=== PATIENT | male | born 1940 | race Caucasian/White ===

== ENCOUNTER 2019-02-12 15:55 | Inpatient (IN) ==
--- NOTE | 2019-02-12 16:57 | EKG Report ---
Test Performed on : 02/12/2019 4:20:12 PM Test Reason : WEAK Blood Pressure : / mmHG Vent. Rate : 072 BPM Atrial Rate : 072 BPM P-R Int : 190 ms QRS Dur : 106 ms QT Int : 394 ms P-R-T Axes : 028 -03 020 degrees QTc Int : 431 ms Normal sinus rhythm. Normal ECG When compared with ECG of 25-DEC-2018 23:20, (Unconfirmed) No significant change was found Unconfirmed Result
[2019-02-12 17:17] LABS: BASO# 0.03 X1000 (0.0-0.2); BASO% 0.4 % (0.0-0.8); EOS# 0.01 X1000 (0.0-0.7); EOS% 0.1 % (0.0-10.0); HEMOGLOBIN 11.9 g/dL (14.0-18.0); LYMPH# 0.53 X1000 (1.2-3.4); LYMPH% 6.7 % (20.5-51.1); MCH 25.5 PG (27-31); MCHC 33.1 g/dL (33-37); MCV 77.1 FL (81-99); MONO# 0.79 X1000 (0.11-0.59); NEUT# 6.56 X1000 (1.4-6.5); NEUT% 82.8 % (42.2-75.2); PLT 212 X1000 (130-400); RBC 4.67 XMIL (4.7-6.1); RDW 15.5 % (11.5-14.5); WBC 7.92 X1000 (4.8-10.8)
--- NOTE | 2019-02-12 17:23 | Diag Imaging Result Doc PS360 ---
EXAM: CHEST-PORTABLE 02/12/2019 HISTORY: FEVER TECHNIQUE: AP portable upright at 1705 COMMENT: There is no evidence of acute cardiac or pulmonary disease. Considering differences in technique there has been no significant change since 06/08/2018. IMPRESSION: Stable chest. Electronically signed by Sathya Maloney 02/12/2019 5:21 PM
[2019-02-12 17:43] LABS: URINE SOURCE CLEAN CATCH
[2019-02-12 17:51] LABS: AGAP 16; ALBUMIN 4.1 g/dL (3.5-5.0); ALKALINE PHOSPHATASE 54 U/L (32-122); BUN 16 mg/dL (8-22); CALCIUM 8.9 mg/dL (8.8-10.2); CHLORIDE 94 mmol/L (98-107); COSMO 267; CREATININE 0.9 mg/dL (0.7-1.2); ESTIMATED GFR > 60; GLUCOSE 114 mg/dL (70-104); GOT 17 U/L (10-34); GPT 13 U/L (10-44); POTASSIUM 3.8 mmol/L (3.5-5.1); SODIUM 132 mmol/L (136-145); TCO2 22 mmol/L (25-35); TOTAL BILIRUBIN 0.41 mg/dL (0.20-1.00); TOTAL PROTEIN 6.1 g/dL (6.3-8.3)
[2019-02-12 17:52] LABS: BILIRUBIN URINE NEGATIVE (NEGATIVE); BLOOD URINE NEGATIVE (NEGATIVE); COLOR YELLOW; GLUCOSE URINE NEGATIVE (NEGATIVE); KETONE URINE NEGATIVE (NEGATIVE); LEUKOCYTES URINE NEGATIVE (NEGATIVE); NITRITE URINE NEGATIVE (NEGATIVE); PH URINE 6.5; PROTEIN URINE NEGATIVE (NEGATIVE); SP GRAVITY URINE 1.014; TURBIDITY URINE CLEAR (CLEAR); UROBILINOGEN URINE NORMAL (NORMAL)
[2019-02-12 17:53] LABS: UR EPITHELIAL CELLS <10 /HPF (<10); URINE BACTERIA NEGATIVE /HPF; URINE RBC <10 /HPF (<10); URINE WBC <10 /HPF (<10)
--- NOTE | 2019-02-12 19:08 | PROVIDER DOCUMENTATION ---
This chart was entered by Bambi Melgoza Scribe, acting as scribe for Leroy Brandt MD. HPI-General Adult - General Source: patient - History of Present Illness -Gen Adult Nature of Presenting Problems: Patient is a 78 year old male who presents with weakness, headache and fever. States seeing PCP prior to arrival. Denies cough, nasal congestion, sore throat, nausea, vomiting and diarrhea. Reports being on Keflex for UTIs. Location of Pain/Injury: reports: head Pain Radiation: reports: no radiation Quality of Pain: reports: aching Severity: reports: mild Onset/Duration: reports: this morning Timing: reports: still present Context/Activities at Onset: reports: light activity Associated Symptoms: reports: fever/chills (fever), headaches, weakness Similar Symptoms Previously?: No Recently seen or treated by another doctor?: Yes <Leroy Brandt - Last Filed: 02/12/19 19:07> <Raymundo Sewell - Last Filed: 02/12/19 19:43> - General Chief Complaint: Weakness Stated Complaint: WEAKNESS,FEVER,LOW BP Time Seen by Provider: 02/12/19 16:11 Allergies/Adverse Reactions: Patient Allergies Allergy/AdvReac Type Severity Reaction Status Date / Time meloxicam [From Mobic] AdvReac Severe Unknown Verified 11/08/17 23:38 NSAIDS (Non-Steroidal AdvReac Severe Unknown Verified 11/08/17 23:38 Anti-Inflamma Home Medications: Home Medication List Medication Instructions Recorded Confirmed Last Taken Type Albuterol Sulfate Inhaler 2 puff INH Q6H PRN PRN 02/12/19 02/12/19 Unknown History [Ventolin Hfa] CephALEXIN [Keflex] 250 mg PO DAILY 02/12/19 02/12/19 Unknown History Clonidine Patch [Zatysjpy-Ipv-1] 1 ea TD Q7D 02/12/19 02/12/19 Unknown History Clonidine [Catapres] 0.1 mg PO TID PRN 02/12/19 02/12/19 Unknown History Cyclobenzaprine HCl 5 mg PO TID PRN 02/12/19 02/12/19 Unknown History Diltiazem HCl [Cardizem Cd] 240 mg PO DAILY 02/12/19 02/12/19 Unknown History Doxazosin Mesylate [Cardura] 8 mg PO DAILY 02/12/19 02/12/19 Unknown History Finasteride [Proscar] 5 mg PO DAILY 02/12/19 02/12/19 Unknown History Gabapentin 600 mg PO TID PRN 02/12/19 02/12/19 Unknown History Hydralazine [Apresoline] 50 mg PO TID 02/12/19 02/12/19 Unknown History Hydroxyzine Pamoate [Vistaril] 25 mg PO TID PRN 02/12/19 02/12/19 Unknown History Indapamide 2.5 mg PO DAILY 02/12/19 02/12/19 Unknown History Levothyroxine [Synthroid] 50 microgm PO DAILY 02/12/19 02/12/19 Unknown History Metformin E.r. [Glucophage Xr] 1,000 mg PO DAILY 02/12/19 02/12/19 Unknown History Nortriptyline [Pamelor] 25 mg PO HS PRN 02/12/19 02/12/19 Unknown History Olmesartan Medoxomil 40 mg PO DAILY 02/12/19 02/12/19 Unknown History Potassium Chloride 30 meq PO DAILY 02/12/19 02/12/19 Unknown History Review of Systems - Adult - REVIEW OF SYSTEMS - ADULT Constitutional: reports: see HPI, fever. denies: chills, fatique Eyes: reports: no symptoms reported Ears, Nose, Mouth & Throat: reports: no symptoms reported. denies: ear pain, sinus problem, throat pain Cardiovascular: reports: no symptoms reported Respiratory: reports: no symptoms reported. denies: cough, shortness of breath, wheezing Gastrointestinal: reports: no symptoms reported Genitourinary: reports: no symptoms reported Musculoskeletal: reports: see HPI, muscle weakness. denies: back pain, neck pain Integumentary: reports: no symptoms reported Neurological: reports: see HPI, headache/migraines (JIMENEZ). denies: dizziness/vertigo, numbness, seizure, syncope Psychiatric: reports: no symptoms reported Endocrine: reports: no symptoms reported Hematologic/Lymphatic: reports: no symptoms reported Allergic/Immunologic: reports: no symptoms reported All Other Systems: Reviewed and Negative <Leroy Brandt - Last Filed: 02/12/19 19:07> Past History - Adult - PAST MEDICAL HISTORY-ADULT Review of Records: reports: Old Records Reviewed, Social history reviewed & non- contributory. Major Childhood Illnesses: reports: denies history Cardiovascular: reports: HTN, hyperlipidemia Respiratory: reports: denies history Gastrointestinal: reports: denies history Obstetrical/Gynecological: reports: denies history Genitourinary: reports: denies history Musculoskeletal: reports: denies history Neurological: reports: denies history Endocrine/Immune: reports: Diabetes, thyroid disorder Other Conditions: reports: denies history - PRIOR SURGERIES/PROCEDURES Surgical/Procedure History: reports: reviewed, not pertinent, hernia repair, other (cataract, retina repair) - IMMUNIZATION STATUS Childhood Immunizations: See Nurse Assessment Flu Vaccine: See Nurse Assessment - FAMILY HISTORY Family History: reviewed, not pertinent - SOCIAL HISTORY Smoking: denies Substance Use: denies <Leroy Brandt - Last Filed: 02/12/19 19:07> Physical Exam-General - PHYSICAL EXAM-ADULT Initial Vital Signs Reviewed: Yes - CONSTITUTIONAL General Appearance: alert, no apparent distress. negative: lethargic - NECK Neck: non-tender, normal inspection. negative: lymphadenopathy - RESPIRATORY Respiratory: chest non-tender, lungs clear, normal breath sounds. negative: rales, rhonchi, wheezing - CARDIOVASCULAR Cardiovascular: normal peripheral pulses, regular rate, rhythm. negative: tachycardia - GASTROINTESTINAL (ABDOMEN) Abdominal Exam: normal bowel sounds, non tender, soft. negative: rigid, rebound - MUSCULOSKELETAL Extremity: non-tender, normal inspection. negative: deformity, erythema - SKIN Integumentary: normal color, normal turgor, warm/dry. negative: diaphoresis, ecchymosis, jaundice, rash - NEUROLOGIC Neurologic: grossly normal. negative: aphasia, facial droop - PSYCHIATRIC Psych/Mental Status: normal mood/affect, oriented x 3. negative: anxious <Leroy Brandt - Last Filed: 02/12/19 19:07> Progress - PLAN OF CARE/RESULTS Progress/Plan/Lab Results: Vital Signs - 8 hr 02/12/19 15:59 Temperature 102.2 F H Pulse Rate 83 Respiratory Rate 20 Blood Pressure 166/83 O2 Sat by Pulse Oximetry 96 Laboratory Results - last 24 hr 02/12/19 16:25 POC Glucose 109 H Result Diagrams: 02/12/19 16:57 02/12/19 16:57 - EKG 1 Time of EKG reading by physician:: 16:20 EKG Read and Signed by:: Leroy Brandt EKG Interpretation (*Must complete 3 of following elements*): Normal Rate: 72 Rhythm: normal sinus rhythm [place]: normal QRS: normal [place] Interval: normal ST Wave: normal Comments: normal ECG - XRAY 1 XRAY Study: Chest Impression: See EMR Report ( EXAM: CHEST-PORTABLE 02/12/2019 HISTORY: FEVER TECHNIQUE: AP portable upright at 1705 COMMENT: There is no evidence of acute cardiac or pulmonary disease. Considering differences in technique there has been no significant change since 06/08/2018. IMPRESSION: Stable chest. Elect ronically signed by Sathya Maloney 02/12/2019 5:21 PM 02/12/19 1721 Interpreting Physician: Sathya Maloney MD Dictated Date/Time: 02/12/19 172 cc: Leryo Brandt MD; Yovany Auguste MD) - CHANGE OF SHIFT REPORT (ED Provider) 1 Report Given and Care Transferred to:: dr penny sewell Time of Transfer: 19:08 <Leroy Brandt - Last Filed: 02/12/19 19:07> - PLAN OF CARE/RESULTS Progress/Plan/Lab Results: Vital Signs - 8 hr 02/12/19 15:59 02/12/19 16:15 02/12/19 16:16 Temperature 102.2 F H Pulse Rate 83 75 75 Pulse Rate [Sitting] Pulse Rate [Supine] Respiratory Rate 20 18 23 Blood Pressure 166/83 176/86 Blood Pressure [Sitting] Blood Pressure [Supine] O2 Sat by Pulse Oximetry 96 96 96 02/12/19 16:30 02/12/19 16:31 02/12/19 16:45 Temperature Pulse Rate 72 74 75 Pulse Rate [Sitting] Pulse Rate [Supine] Respiratory Rate 20 20 20 Blood Pressure 169/78 Blood Pressure [Sitting] Blood Pressure [Supine] O2 Sat by Pulse Oximetry 95 94 L 94 L 02/12/19 17:00 02/12/19 17:08 02/12/19 17:10 Temperature Pulse Rate 72 70 91 H Pulse Rate [Sitting] 91 H Pulse Rate [Supine] 72 Respiratory Rate 16 20 20 Blood Pressure 162/87 152/90 167/86 Blood Pressure [Sitting] 167/86 Blood Pressure [Supine] 152/90 O2 Sat by Pulse Oximetry 95 93 L 93 L 02/12/19 17:15 02/12/19 17:30 02/12/19 17:45 Temperature Pulse Rate 106 H 77 75 Pulse Rate [Sitting] Pulse Rate [Supine] Respiratory Rate 19 19 Blood Pressure 171/98 Blood Pressure [Sitting] Blood Pressure [Supine] O2 Sat by Pulse Oximetry 95 94 L 93 L 02/12/19 18:00 02/12/19 18:15 02/12/19 18:30 Temperature Pulse Rate 73 82 81 Pulse Rate [Sitting] Pulse Rate [Supine] Respiratory Rate 20 20 Blood Pressure Blood Pressure [Sitting] Blood Pressure [Supine] O2 Sat by Pulse Oximetry 95 93 L 92 L 02/12/19 18:45 02/12/19 19:00 02/12/19 19:15 Temperature Pulse Rate 80 80 79 Pulse Rate [Sitting] Pulse Rate [Supine] Respiratory Rate 20 20 20 Blood Pressure Blood Pressure [Sitting] Blood Pressure [Supine] O2 Sat by Pulse Oximetry 97 95 93 L 02/12/19 19:30 Temperature 99.6 F Pulse Rate 76 Pulse Rate [Sitting] Pulse Rate [Supine] Respiratory Rate 17 Blood Pressure Blood Pressure [Sitting] Blood Pressure [Supine] O2 Sat by Pulse Oximetry 95 Laboratory Results - last 24 hr 02/12/19 02/12/19 02/12/19 16:25 16:57 16:57 WBC 7.92 RBC 4.67 L Hgb 11.9 L Hct 36.0 L MCV 77.1 L MCH 25.5 L MCHC 33.1 RDW Std Deviation 15.5 H Plt Count 212 MPV 9.0 Neut % (Auto) 82.8 H Lymph % (Auto) 6.7 L [place] % (Auto) 10.0 H Eos % (Auto) 0.1 Baso % (Auto) 0.4 Neut # (Auto) 6.56 H Lymph # (Auto) 0.53 L [place] # (Auto) 0.79 H Eos # (Auto) 0.01 Baso # (Auto) 0.03 Sodium 132 L Potassium 3.8 Chloride 94 L Carbon Dioxide 22 L Anion Gap 16 BUN 16 Creatinine 0.9 Estimated GFR/1.73 m2 > 60 BUN/Creatinine Ratio 18 Glucose 114 H POC Glucose 109 H Calculated Osmolality 267 Calcium 8.9 Magnesium Total Bilirubin 0.41 AST 17 ALT 13 Alkaline Phosphatase 54 Troponin T Lii-X-Vuigdlcyhpz Pept Total Protein 6.1 L Albumin 4.1 Globulin 2.0 Albumin/Globulin Ratio 2.0 Plasma Lactate Urine Source Urine Color Urine Turbidity Urine pH Ur Specific [place] Urine Protein Ur Glucose (Stick) Ur Ketones (Stick) Urine Blood Urine Nitrite Urine Bilirubin Urobilinogen Dipstick Urine Leukocytes Urine WBC (Auto) Urine RBC (Auto) U Epithel Cells (Auto) Urine Bacteria (Auto) 02/12/19 02/12/19 02/12/19 16:57 16:57 16:57 WBC RBC Hgb Hct MCV MCH MCHC RDW Std Deviation Plt Count MPV Neut % (Auto) Lymph % (Auto) [place] % (Auto) Eos % (Auto) Baso % (Auto) Neut # (Auto) Lymph # (Auto) [place] # (Auto) Eos # (Auto) Baso # (Auto) Sodium Potassium Chloride Carbon Dioxide Anion Gap BUN Creatinine Estimated GFR/1.73 m2 BUN/Creatinine Ratio Glucose POC Glucose Calculated Osmolality Calcium Magnesium 1.7 Total Bilirubin AST ALT Alkaline Phosphatase Troponin T Cxb-I-Pnbrufvzrkx Pept 433 Total Protein Albumin Globulin Albumin/Globulin Ratio Plasma Lactate 2.2 Urine Source Urine Color Urine Turbidity Urine pH Ur Specific [place] Urine Protein Ur Glucose (Stick) Ur Ketones (Stick) Urine Blood Urine Nitrite Urine Bilirubin Urobilinogen Dipstick Urine Leukocytes Urine WBC (Auto) Urine RBC (Auto) U Epithel Cells (Auto) Urine Bacteria (Auto) 02/12/19 02/12/19 16:57 17:22 WBC RBC Hgb Hct MCV MCH MCHC RDW Std Deviation Plt Count MPV Neut % (Auto) Lymph % (Auto) [place] % (Auto) Eos % (Auto) Baso % (Auto) Neut # (Auto) Lymph # (Auto) [place] # (Auto) Eos # (Auto) Baso # (Auto) Sodium Potassium Chloride Carbon Dioxide Anion Gap BUN Creatinine Estimated GFR/1.73 m2 BUN/Creatinine Ratio Glucose POC Glucose Calculated Osmolality Calcium Magnesium Total Bilirubin AST ALT Alkaline Phosphatase Troponin T < 0.010 Eze-G-Iweotzfqtar Pept Total Protein Albumin Globulin Albumin/Globulin Ratio Plasma Lactate Urine Source CLEAN CATCH Urine Color YELLOW Urine Turbidity CLEAR Urine pH 6.5 Ur Specific [place] 1.014 Urine Protein NEGATIVE Ur Glucose (Stick) NEGATIVE Ur Ketones (Stick) NEGATIVE Urine Blood NEGATIVE Urine Nitrite NEGATIVE Urine Bilirubin NEGATIVE Urobilinogen Dipstick NORMAL Urine Leukocytes NEGATIVE Urine WBC (Auto) <10 Urine RBC (Auto) <10 U Epithel Cells (Auto) <10 Urine Bacteria (Auto) NEGATIVE Orders Category Date Time Status ED: Orthostatic Vital Signs (E as directed Care 02/12/19 16:53 Active Saline Loc NOW Care 02/12/19 16:52 Active CHEST-PORTABLE [RAD] Stat Exams 02/12/19 16:53 Completed CBC WITH ELECTRONIC DIFF [HEME] Stat Lab 02/12/19 16:57 Completed COMPREHENSIVE METABOLIC PANEL [CHEM] Stat Lab 02/12/19 16:57 Completed INFLUENZA SCREEN A/B Stat Lab 02/12/19 18:35 Received LACTATE, PLASMA [CHEM] Stat Lab 02/12/19 16:57 Completed MAGNESIUM [CHEM] Stat Lab 02/12/19 16:57 Completed PRO B-NATRIURETIC PEPTIDE Stat Lab 02/12/19 16:57 Completed TROPONIN T Stat Lab 02/12/19 16:57 Completed URINALYSIS W/POSS RFLX CULT [URINALYSIS] Stat Lab 02/12/19 17:22 Completed URINE CULTURE [RM] Routine Lab 02/12/19 17:22 Received EKG [EKG] Stat Ther 02/12/19 16:52 Draft Pt signed out to me by Dr. Brandt pending admission, pt has FUO, pt is too weak to stand, spoke with Dr. Powell and will admit to his service Result Diagrams: 02/12/19 16:57 02/12/19 16:57 <Raymundo Sewell - Last Filed: 02/12/19 19:43> Departure <Leroy Brandt - Last Filed: 02/12/19 19:07> - Departure Date of Disposition Decision: 02/12/19 Time of Disposition Decision: 19:43 Certified Medical Emergency: Emergent - Critical Care Note This patient required my direct & personal management of CC.: No <Raymundo Sewell - Last Filed: 02/12/19 19:43> - Departure DIAGNOSIS: Fever, unknown origin, Weakness Disposition: ADMITTED INPATIENT 09 Condition: Stable Referrals and Follow-Ups: Yovany Auguste MD [Primary Care Provider] - Attestation - Physician/ KATERIN Attestation The physician spent face to face time with patient:: Yes Advanced Practice Provider documentation review:: Supervising physician onsite and consulted in the evaluation and care of this patient. The physician did have a face to face encounter with the patient. <Brandt,Leroy W. - Last Filed: 02/12/19 19:07> - Physician/ KATERIN Attestation Patient care was provided by Advanced Practice Provider:: No <Raymundo Sewell. - Last Filed: 02/12/19 19:43> This chart was documented by the indicated scribe, (Bambi Melgoza, Rory) and accurately reflects the services I performed and decisions made by me, Leroy Brandt MD, as attested by the provider's signature.
[2019-02-12] MEDS ORDERED: TYLENOL PO ONE (19:50)
--- NOTE | 2019-02-12 21:31 | HISTORY AND PHYSICAL ---
PRIMARY CARE PROVIDER: Dr. Yovany Auguste. REASON FOR ADMISSION: Fever and generalized weakness today. HISTORY OF PRESENT ILLNESS: Mr. Ha Archibald is a 78-year-old man with past medical history of type 2 diabetes with peripheral neuropathy, difficult to control hypertension who said he woke up this morning and felt he was going to pass out when he stood up. He said thereafter he has been feeling profoundly weak and sought care at his primary care physician's office i.e. Dr. Yovany Auguste. When he got there he was seen by the nurse practitioner who noticed his blood pressure was 80/50, which the patient had recorded at home and sent him to the ER. On arrival to the ER, he had a temperature of 102 degrees; however, his blood pressure had improved and was in the 150/70 range on arrival with a heart rate of 76, temperature later dropped down to 99.6 without any antipyretic medication. He denies any nausea, vomiting, diarrhea. He says he has a history of recurrent urinary tract infection and takes chronic antibiotic suppression with Keflex. He denies any hematuria but says he has a little stinging when he urinates. He denies any urinary flow problems. He denies any cardiorespiratory complaints other than occasional cough for the last couple of days. He denies any contact with anybody with respiratory illnesses. The patient denies any new onset arthralgia or rash. No change in his home medications other than 6 weeks ago. He was put on a clonidine patch. He denies any neck stiffness. REVIEW OF SYSTEMS: Notable for left-sided occipital headache, which was sharp and intermittent. Currently he has no headaches at this time. No visual problems, neck stiffness. No polyuria or polydipsia. Review of systems 12 system review was done. Positive findings per HPI. ALLERGIES: NSAIDs. HOME MEDICATIONS: He is on hydralazine 50 t.i.d., Cardizem 240 mg daily, Cardura 8 mg daily, clonidine 0.1 mg t.i.d., Catapres patch TTS 2 every week, Flexeril 5 mg t.i.d., gabapentin 600 mg t.i.d., metformin 1000 mg daily, indapamide 2.5 mg daily, Keflex 250 mg daily, Benicar 40 mg daily, Pamelor 25 mg at bedtime, potassium chloride 30 mEq daily, Proscar 5 mg daily, Synthroid 50 mcg daily, albuterol 2 puffs q.6 p.r.n., Restoril 2 mg t.i.d. p.r.n. SURGICAL HISTORY: Tonsillectomy, umbilical hernia repair, cataract repair, which was bilateral, retinal detachment repair, basal cell cancer removal. PAST MEDICAL HISTORY: See above including diverticular bleeds and gastric AVM bleeds. FAMILY HISTORY: Throat cancer, diabetes, heart disease in first-degree relatives. SOCIAL HISTORY: Lives alone. Does not smoke, drink, or use drugs. LABORATORY WORK: White count 8000, hemoglobin and hematocrit 11 and 36, MCV 77, platelets 212,000, 82% neutrophils. Sodium is 132, BUN 16, creatinine 0.9. Troponin is negative. Lactate is 2.2. Urinalysis is clean. Chest film shows no acute infiltrative process. PHYSICAL EXAMINATION: VITAL SIGNS: On examination, his last blood pressure is 171/98, respirations 17, heart rate 76, temperature is 99.6 degrees. He is 95% on room air. GENERAL: He is a pleasant, morbidly obese, man who is not in acute distress. He is alert and oriented to person, place and time. Normal mood and affect. HEENT: Head is normocephalic, atraumatic. Eyes: PERRLA, EOMI. Anicteric and not pale. ENT: Oropharyngeal exam is grossly normal except for mild xerostomia. No pharyngeal exudates. No erythema. No central cyanosis. NECK: Short and thick. No JVD or carotid bruit. No thyromegaly. CHEST: Bibasilar crepitations were heard with no wheezes. Good air entry in the bases. CARDIOVASCULAR: First and second heart sounds heard. No gallops, murmurs, rubs. Rhythm is regular but occasional intermittent pauses. ABDOMEN: Protuberant, soft, nontender. No mass, megaly. Bowel sounds normal. RECTAL EXAM: Deferred at this time. EXTREMITIES: Patient has 1+ pitting edema in both lower extremities. No clubbing or peripheral cyanosis. Distal pulse volumes are full, regular and symmetrical with occasional skipped pulses. NEUROLOGICAL EXAM: No focal deficits. SKIN: Intact with no breakdown, lesions, erythema. MUSCULOSKELETAL EXAM: Grossly normal. ASSESSMENT: 1. Fever with transient hypotension. Could represent a viral illness versus transient bacteremia. For now, we will treat supportively. Only positive findings noted on exam with bibasilar crepitations and a history of cough. X-ray did not show anything; however, he does have neutrophilia. We will order a CT thorax and if there is any infiltrative process, we will treat for community-acquired pneumonia. Otherwise we will treat symptomatically. Flu swab was ordered. 2. Hypertension with bout of hypotension. For now, we will discontinue clonidine patch. Continue other antihypertensive medications but would not administer if blood pressure is less than 150. I plan to discharge this patient from the ER, but he said he could not stand because he is profoundly dizzy. We will give patient IV fluids and reassess in the morning. 3. Benign prostatic hypertrophy. Continue finasteride and Cardura, which we will also use for his blood pressure. 4. Type 2 diabetes. Start patient on sliding scale. Check A1c. 5. Microcytic anemia. Anemia workup ordered and will need to be followed. 6. Hypothyroidism. Continue with Synthroid. cc: MD Yovany Bolanos MD
[2019-02-12] MEDS ORDERED: ATARAX PO PRN (22:23)
[2019-02-12] MEDS ORDERED: NEURONTIN PO PRN (22:23)
[2019-02-12] MEDS ORDERED: VENTOLIN HFA INH PRN (22:23)
[2019-02-12] MEDS ORDERED: ZOFRAN IV PRN (22:23)
[2019-02-13] MEDS: HUMALOG SUBQ SCH ×5 (00:28→20:13)
[2019-02-13] MEDS: LOVENOX SUBQ SCH ×2 (00:33→20:12)
[2019-02-13] MEDS: NS 1,000 ML IV SCH ×2 (00:34→08:26)
[2019-02-13] MEDS: SYNTHROID PO SCH (06:07)
[2019-02-13] MEDS: CATAPRES PO PRN ×2 (06:07→20:11)
[2019-02-13 07:11] LABS: BASO# 0.02 X1000 (0.0-0.2); BASO% 0.4 % (0.0-0.8); EOS# 0.01 X1000 (0.0-0.7); EOS% 0.2 % (0.0-10.0); HEMATOCRIT 36.1 % (42.0-52.0); MCH 25.3 PG (27-31); MCHC 33.2 g/dL (33-37); MCV 76.2 FL (81-99); MONO# 0.79 X1000 (0.11-0.59); MONO% 15.8 % (1.7-9.3); MPV 9.1 FL (7.4-10.4); NEUT# 3.08 X1000 (1.4-6.5); NEUT% 61.6 % (42.2-75.2); PLT 216 X1000 (130-400); RBC 4.74 XMIL (4.7-6.1); RDW 15.2 % (11.5-14.5); RETIC% 0.74 % (0.8-2.1); RETIC-HE 28.7 PG (28.2-36.6)
--- NOTE | 2019-02-13 07:12 | Diag Imaging Result Doc PS360 ---
EXAM: CT THORAX W/O CONTRAST 02/12/2019 HISTORY: fever creps TECHNIQUE: This exam was performed using automated exposure control, adjustment of mA or kV according to patient size, and/or use of iterative reconstruction technique. COMMENT: There is no evidence of significant adenopathy. There are calcifications in the left anterior descending and circumflex coronary arteries. There is a hiatal hernia. There is a very small left pleural effusion. This was not present on the previous study of 10/13/2013. There is splenomegaly the spleen measuring 14.2 cm in AP dimension. This has actually improved slightly since the previous study at which time it was 14.5 cm. There is minimal atelectasis in the posterior costophrenic sulcus of the left lower lobe. There is a calcified granuloma in the superior segment of the left lower lobe near the major fissure. There is minimal dependent atelectasis in the right lower lobe. There are some bone islands in T12. There are spondylotic changes throughout the thoracic spine. IMPRESSION: Small left pleural effusion with left lower lobe atelectasis. Splenomegaly. Hiatal hernia. Electronically signed by Sathya Maloney 02/13/2019 7:09 AM
[2019-02-13 07:26] LABS: AGAP 11; BUN 13 mg/dL (8-22); CALCIUM 8.6 mg/dL (8.8-10.2); CHLORIDE 98 mmol/L (98-107); CHOLESTEROL 134 mg/dL (0-200); COSMO 271; ESTIMATED GFR > 60; GLUCOSE 120 mg/dL (70-104); HDL 48 mg/dL (35-55); LDL 59 mg/dL; MAGNESIUM 1.7 mg/dL (1.5-2.7); POTASSIUM 3.7 mmol/L (3.5-5.1); SODIUM 135 mmol/L (136-145); TCO2 26 mmol/L (25-35); TOTAL IRON 33 ug/dL (53-167); TRIGLYCERIDES 137 mg/dL (39-160); VLDL 27 mg/dL
[2019-02-13 07:27] LABS: HEMOGLOBIN A1C 5.9 % (4.8-6.0)
[2019-02-13 07:44] LABS: TSH 1.86 uIUmL (0.27-4.20)
[2019-02-13] MEDS: CARDURA PO SCH (08:25)
[2019-02-13] MEDS: PROSCAR PO SCH (08:25)
[2019-02-13] MEDS: TYLENOL PO PRN ×2 (08:25→19:37)
[2019-02-13] MEDS: CARDIZEM CD PO SCH (08:25)
[2019-02-13] MEDS: APRESOLINE PO SCH ×3 (08:25→20:11)
--- NOTE | 2019-02-13 20:01 | PROGRESS NOTE ---
DATE: 02/13/2019 SUBJECTIVE: This morning Mr. Archibald refers to be doing a whole lot better. Denies any new complaints. Mr. Archibald got admitted yesterday because of fever and low blood pressure at his doctor's office. Upon reaching here he had a temperature of 102.3 degrees, but he has not had any more elevated temperature. OBJECTIVE: His blood pressure is 158/68, pulse of 58, respiration is 18, temperature is 98.1 degrees. On general exam, Mr. Archibald is a 78-year-old gentleman. He is in bed, in no distress. Mucosa is pink and moist. Anicteric. Acyanotic. Neck is supple. Chest was clear to auscultation. No crepitations. No rhonchi.Cardiovascular: Regular rate and rhythm. No murmurs, no rubs no gallops. Abdomen is soft. Distended but nontender. Bowel sounds present. There is no CVA tenderness. Extremities: No pedal edema. GIS GEOGRAPHER: The patient is awake, alert and oriented. There is no focal neurological deficit. LABORATORY DATA: WBC is 5.00, hemoglobin is 12.0, platelet count of 216,000. Chemistry is also reviewed, completely unremarkable. The patient is iron-deficient. UA was completely clear. ASSESSMENT: 1. Fever of unclear source. Imaging studies are unremarkable. The patient's white cell count is within normal range. I am unsure if this is a partially treated urinary tract infection, since the patient has had multiple urinary tract infections and is actually on suppressive treatment with Keflex, or this is just a viral entity. A urine culture was done which was negative. A blood culture was not done on admission. Mr. Archibald seems to be remarkably stable. We are going to observe him another day. If there is any occult infectious process, we think it will be more evident during the hospital observation. If he is afebrile 24 to 48 hours and he is maintaining normal blood pressures, we can get him home tomorrow and continue just observation at home. 2. Iron deficiency with macrocytic anemia noted. The patient will continue with supplementation. 3. Hypertension, controlled. 4. History of benign prostatic hypertrophy. The patient is on Cardura and Proscar. He has been advised to follow up with Urology. PLAN: In general I think Mr. Archibald is a lot better today. He does not show any meningeal signs and there is no source of any possible infection. We are going to observe him 24 hours in the hospital. If he remains afebrile with normal vital signs, I think it will be okay to let him go home. He has been advised to follow up with Urology for a more comprehensive urological evaluation. cc: Deepak Yuan MD
[2019-02-14] MEDS: HUMALOG SUBQ SCH (06:16)
[2019-02-14] MEDS: SYNTHROID PO SCH (06:19)
[2019-02-14 06:58] LABS: BASO# 0.03 X1000 (0.0-0.2); BASO% 0.5 % (0.0-0.8); EOS# 0.07 X1000 (0.0-0.7); EOS% 1.2 % (0.0-10.0); HEMATOCRIT 37.3 % (42.0-52.0); HEMOGLOBIN 12.4 g/dL (14.0-18.0); LYMPH# 1.39 X1000 (1.2-3.4); LYMPH% 24.3 % (20.5-51.1); MCH 25.2 PG (27-31); MCHC 33.2 g/dL (33-37); MCV 75.8 FL (81-99); MONO# 0.95 X1000 (0.11-0.59); MONO% 16.6 % (1.7-9.3); MPV 9.2 FL (7.4-10.4); NEUT# 3.27 X1000 (1.4-6.5); NEUT% 57.4 % (42.2-75.2); PLT 214 X1000 (130-400); RBC 4.92 XMIL (4.7-6.1); RDW 15.5 % (11.5-14.5); WBC 5.71 X1000 (4.8-10.8)
[2019-02-14 07:21] LABS: AGAP 15; BUN 11 mg/dL (8-22); CALCIUM 8.9 mg/dL (8.8-10.2); CHLORIDE 101 mmol/L (98-107); COSMO 276; CREATININE 0.8 mg/dL (0.7-1.2); ESTIMATED GFR > 60; GLUCOSE 120 mg/dL (70-104); POTASSIUM 3.3 mmol/L (3.5-5.1); SODIUM 138 mmol/L (136-145); TCO2 22 mmol/L (25-35)
--- NOTE | 2019-02-14 07:59 | CONSULTATION ---
DATE OF CONSULTATION: 02/13/2019 REQUESTING PROVIDER: Dr. Jorge Powell MD REASON FOR CONSULTATION: Possible sleep apnea. HISTORY OF PRESENT ILLNESS: This is a 78-year-old male with a medical history of diabetes mellitus type 2, peripheral neuropathy, hypertension, osteoarthritis, gastric AVM, GI bleeding and diverticular bleeding. He presented to the ER yesterday afternoon with weakness, headache and fever. Chest x-ray in the ER showed no evidence of acute cardiac or pulmonary disease. Labs showed hyponatremia and hypochloremia. Otherwise, nonsignificant. He did develop fever up to 102.2 with transient hypertension. He has been admitted to the medical floor for further evaluation and management. The patient currently is sitting on the edge of the bed with no acute distress. He reports no cough, nasal congestion, sore throat, nausea, vomiting, diarrhea, chest pain, palpitations, or noticeable weight change. He lives by himself so he has no idea whether he is snoring or not, but he did report he is sleeping pretty good, and he has no interrupting sleeping. No morning headache. He is currently on Keflex for urinary tract infection from his family doctor. PAST MEDICAL HISTORY: 1. Diabetes mellitus type 2. 2. Peripheral neuropathy. 3. Hypertension. 4. Osteoarthritis. 5. 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 6. GI bleeding secondary to AVM. 7. Diverticular bleeding diagnosed colonoscopy in August of 2017. 8. Status post tonsillectomy. 9. Status post umbilical hernia repair. 10. Basal cell cancer removal on the right side of the nose tip. 11. Bilateral retinal detachment repair. 12. Status post bilateral cataract repair. FAMILY HISTORY: Positive for throat cancer, diabetes and heart disease. SOCIAL HISTORY: The patient lives alone. He does have relatives living close by. He has no history of alcohol, tobacco, or illicit drug use. REVIEW OF SYSTEMS: A 10-point review of systems was conducted and the pertinent is listed within the HPI, otherwise noncontributory. ALLERGIES: Meloxicam and NSAIDs. PHYSICAL EXAMINATION: Vital Signs: Temperature 98.3, blood pressure 166/83, pulse 68, respiratory rate 18, and oxygen saturation 97% on room air. General: A very pleasant and cooperative gentleman sitting on the edge of the bed with no acute distress. HEENT: Atraumatic, normocephalic. Trachea midline. Mucosa pink and moist. Respiratory: Even and unlabored symmetrical excursion. Clear to auscultation bilaterally. Cardiovascular: Regular rate and rhythm. Gastrointestinal: Soft. Nontender and protuberant. Normoactive bowel sounds in all 4 quadrants. Extremities: No pedal edema. No cyanosis. No clubbing. Dorsalis pedis 1+ bilaterally. Neurologic: Alert and oriented x3. Speech fluent. Follows commands. LABORATORY DATA: White blood cell 5.00, hemoglobin 12, hematocrit 36.1, and platelets 216,000. Sodium 135, potassium 3.7, chloride 98, carbon dioxide 26, BUN 14, creatinine 1.0 and glucose 120. IMAGING DATA: CT thorax without contrast on 02/12/2019 showed small left pleural effusion with left lower lobe atelectasis, splenomegaly and hiatal hernia. ASSESSMENT: This is a 78-year-old male with a medical history of diabetes mellitus type 2, peripheral neuropathy, hypertension, osteoarthritis, gastric AVM, GI bleed, and diverticular bleed. He has been admitted since yesterday afternoon with fever of unclear source. Transient hypertension. 1. Suspected obstructive sleep apnea. The patient reported he had a sleep study done in [place] several years ago, which was negative at that time. 2. Fever of unclear source. 3. Small left pleural effusion with left lower lobe atelectasis. PLAN: 1. Recommend outpatient sleep study. The patient stated at this time he cannot afford a sleep study as his insurance does not cover. 2. Recommend to lose weight by exercise and diet control. 3. Recommend patient to sleep on his side or on his abdomen, but try to avoid sleep on his back. 4. Encourage deep breathing and coughing routinely. 5. Continue bronchodilator. 6. Follow up with CBC and urine culture. 7. Further recommendations pending hospital course. Thank you for the courtesy of this consult. Dictated by ISIDRO Leggett for Charles Rosario MD cc: ISIDRO Leggett MD [facility]
[2019-02-14] MEDS: APRESOLINE PO SCH (09:27)
[2019-02-14] MEDS: PROSCAR PO SCH (09:27)
[2019-02-14] MEDS: CARDIZEM CD PO SCH (09:27)
[2019-02-14] MEDS: CARDURA PO SCH (09:27)
[2019-02-14 11:51] VITALS: BP 174/94
--- NOTE | 2019-02-14 20:55 | DISCHARGE SUMMARY ---
ADMISSION DATE: 02/12/2019 DISCHARGE DATE: 02/14/2019 DISPOSITION: Home. FOLLOWUP: 1. PCP, Dr. Yovany Auguste. 2. Dr. Rosario. CONSULTATIONS DURING THIS ADMISSION: Pulmonary Medicine was consulted. Patient was seen by Dr. Rosario. INVASIVE PROCEDURES DONE DURING THIS ADMISSION: None. IMAGING STUDIES OF SIGNIFICANCE: A chest x-ray shows stable, no acute pathology. CT scan showed a left pleural effusion with left lower lobe atelectasis, splenomegaly, hiatal hernia. ADMISSION DIAGNOSES: 1. Fever with transient hypotension. 2. Hypertension. 3. Benign prostatic hypertrophy. 4. Microcytic anemia. 5. Hypothyroid. DIAGNOSES AT THE TIME OF DISCHARGE: 1. Fever of unclear source with negative urine culture. Presumably, viral illness. The patient was observed during the hospital course and has remained afebrile over 48 hours. 2. Microcytic anemia with iron deficiency. 3. Hypertension. 4. History of benign prostate hypertrophy. 5. Chronic urinary tract infections, on suppressive antimicrobial therapy. 6. Hiatal hernia noted. 7. Splenomegaly of unclear etiology. Patient has been advised to follow up with Hematology/Oncology. 8. Suspected obstructive sleep apnea. Patient will follow up with Dr. Rosario. DISCHARGE MEDICATIONS: 1. Cephalexin 250 p.o. daily. 2. Clonidine patch. 3. Cardura 8 mg p.o. daily. 4. Gabapentin 600 p.o. 3 times per day. 5. Hydralazine 50 mg 3 times per day. 6. Metformin 1000 p.o. daily. 7. Nortriptyline 25 mg p.o. at bedtime p.r.n. 8. Olmesartan 40 mg p.o. daily. 9. Diltiazem 240 p.o. daily. 10. Synthroid 50 mcg p.o. daily. PRESENTING COMPLAINT: Fever and generalized weakness. HISTORY OF PRESENTING COMPLAINT: Mr. Archibald is an 78-year-old, gentleman, who came to the emergency department because of generalized weakness. He was at Dr. Auguste' office, was found to be slightly hypotensive. His blood pressure was 102. He had just been started on clonidine patch. Upon presenting to the emergency department, he was found to have a temperature of 99.6. The patch had already been removed. His blood pressure had improved to 150/70. He was admitted for further medical care. HOSPITAL COURSE: Mr. Archibald was admitted to the medical floor. All of his blood pressure medications were withheld. He was adequately fluid resuscitated. Cultures were done. Chest x- ray was completely unremarkable. CT scan of the chest did not show any pneumonia. His urine was also clean. It has came back actually negative. We think he probably had a viral illness, and on top of that, his blood pressure went low because of multiple blood pressure agents and the fact that he could have been volume depleted. During the hospital course, Mr. Archibald's blood pressure got stabilized. It was actually now running high, so we have restarted him back on his blood pressure medications and he is stable. He was also found to have iron deficiency and he was advised to follow up outpatient with GI to rule out any potential source of chronic blood loss through the GI tract. Mr. Archibald was also advised to follow up with a urologist since he is known to have BPH and on chronic suppressive antimicrobial therapy for chronic UTI's. TIME SPENT FOR DISCHARGE: 37 minutes. cc: Deepak Yuan MD MTDD
== END 2019-02-14 12:37 | disposition home or self-care (01) | DRG 866 ==
LOC: ED 15:55 → 3N 15:56 → SUATTDRO 15:56
PROVIDERS: ATTEND Internal Medicine